=== PATIENT | male | born 1960 | race Caucasian/White ===

== ENCOUNTER 2016-08-08 17:30 | Emergency (ER) | payer OTHER ==
[~2016-08-08] VITALS: Ht 188 cm; Wt 123.1 kg
[2016-08-08 17:58] LABS: HEMATOCRIT 45.9 % (38.0-50.0); MCH 30.1 PG (29.0-34.0); MCHC 33.8 G/DL (30.0-36.0); MCV 89.1 FL (86-99); MEAN PLAT.VOLUME 9.4 uM^3 (9.0-12.4); PLATELET COUNT 280 K/uL (156-360); RBC DIS.WIDTH-CV 12.1 % (11.8-14.6); RBC DIS.WIDTH-SD 40.1 % (39-53); RED BLOOD COUNT 5.15 M/uL (4.00-5.50)
[2016-08-08 18:09] LABS: CHLORIDE 107 mEq/L (99-109); POTASSIUM 3.7 mEq/L (3.7-5.4); SODIUM 137 mEq/L (136-147)
[2016-08-08 18:10] LABS: GLUCOSE 96 mg/dL (70-99)
[2016-08-08 18:12] LABS: ANION GAP 9 MEQ/L (2-14)
[2016-08-08 18:15] LABS: UREA NITROGEN (BUN) 18 mg/dL (9-23)
[2016-08-08 18:20] LABS: TROP-I INTERPRETATION NEGATIVE; TROPONIN-I < 0.01 ng/mL (0.0-0.30)
[2016-08-08 18:27] LABS: GFR ESTIMATE (CALCULATED) > 59 mL/min/
[2016-08-08 18:55] VITALS: BP 124/90
== END 2016-08-08 18:57 | disposition left against medical advice (07) ==
LOC: EME 17:30
PROVIDERS: Physician Assistant
DX: R07.9 Chest pain, unspecified (principal); Z88.0 Allergy status to penicillin
CPT/HCPCS: 80048; 84484; 85027; 93005; 99281; 99284